=== PATIENT | female | born 1995 | race Caucasian/White ===

== ENCOUNTER 2020-09-01 11:42 | Outpatient (CLI) | payer BC ==
[2020-09-01 11:55] VITALS: BP 118/71
[2020-09-01] MEDS ORDERED: EPINEPHrine INJECTION 1 MG/ML AMP IM PRN (12:00)
[2020-09-01] MEDS ORDERED: CASIRIVIMAB/IMDEVIMAB 1,200 MG in NS (IVPB) 250 ML IV ONE (12:00)
[2020-09-01] MEDS ORDERED: diphenhydrAMINE 50 MG/ML INJ (BENADRYL) IV PRN (12:00)
[2020-09-01 13:45] VITALS: BP 118/72
== END 2020-09-01 13:47 ==
LOC: INFUSION 11:42
PROVIDERS: ATTEND Physician Assistant
DX: Z23 Encounter for immunization (principal); U07.1 COVID-19